=== PATIENT | female | born 1965 | race Caucasian/White ===

== ENCOUNTER 2016-10-12 05:28 | Emergency (ER) | payer BC ==
[2016-10-12] MEDS ORDERED: Bacitracin/Neomycin/Polymyxin B Oint 0.9 GM U/D Packet TOP ONE (06:12)
[2016-10-12 06:29] VITALS: BP 149/83
--- NOTE | 2016-10-12 06:31 | EDM.PDOC ---
ED HPI GENERAL MEDICAL PROBLEM - General Chief Complaint: Laceration Stated Complaint: R) palm laceration Time Seen by Provider: 10/12/16 05:35 Source of Information: Reports: Patient History Limitations: Reports: No Limitations - History of Present Illness INITIAL COMMENTS - FREE TEXT/NARRATIVE: Patient is a 50-year-old female who presents with a laceration of the right palmar area approximately 5 cm semicircular this time patient states that she was throwing away a glass cake fernandez that she saw cracked and when she put it in the garbage broke and she slid her hand. This happened around 5 AM prior to going to work Onset: Today Duration: Minutes: Location: Reports: Other (Right hand palmar aspect) Quality: Reports: Throbbing Severity: Moderate Improves with: Reports: None Worsens with: Reports: None Context: Reports: Trauma Associated Symptoms: Reports: No Other Symptoms - Related Data Allergies Allergy/AdvReac Type Severity Reaction Status Date / Time amoxicillin Allergy Hives Verified 10/12/16 05:32 Home Meds: Home Meds Aspirin 325 mg PO DAILY 12/05/15 [History] Cholecalciferol (Vitamin D3) [Vitamin D3] 2,000 unit PO BID 12/05/15 [History] Furosemide [Lasix] 20 mg PO BID 12/05/15 [History] Lisinopril 10 mg PO BID 12/05/15 [History] Multivitamin [Multi-Vitamin Daily] 1 tab PO DAILY 12/05/15 [History] Simvastatin 40 mg PO BEDTIME 12/05/15 [History] Ubidecarenone [Co Q-10] 100 mg PO BID 12/05/15 [History] amLODIPine [Norvasc] 5 mg PO DAILY 10/12/16 [History] cycloSPORINE [Cyclosporine] 100 mg PO BID 10/12/16 [History] Past Medical History Cardiovascular History: Reports: High Cholesterol, Hypertension Genitourinary History: Reports: Other (See Below) Other Genitourinary History: Kidney Disease, Nephrotic Syndrome [employer] History: Reports: Other (See Below) Other OB/BYN History: Nulligravida Endocrine/Metabolic History: Reports: Other (See Below) Other Endocrine/Metabolic History: Minimal Change Disease - Past Surgical History GI Surgical History: Reports: Cholecystectomy Social & Family History - Family History Cardiac: Reports: High Cholesterol Neurological: Reports: CVA Endocrine/Metabolic: Reports: Diabetes, type II Oncologic: Reports: Breast, Colon, Esophageal - Tobacco Use Smoking Status *Q: Never Smoker Second Hand Smoke Exposure: No - Caffeine Use Caffeine Use: Reports: Coffee - Alcohol Use Days Per Week of Alcohol Use: 2 - Recreational Drug Use Recreational Drug Use: No ED ROS GENERAL - Review of Systems Review Of Systems: See Below Constitutional: Reports: No Symptoms HEENT: Reports: No Symptoms Respiratory: Reports: No Symptoms Cardiovascular: Reports: No Symptoms Endocrine: Reports: No Symptoms GI/Abdominal: Reports: No Symptoms : Reports: No Symptoms Musculoskeletal: Reports: No Symptoms Skin: Reports: No Symptoms Neurological: Reports: No Symptoms Psychiatric: Reports: No Symptoms Hematologic/Lymphatic: Reports: No Symptoms Immunologic: Reports: No Symptoms ED EXAM, SKIN/RASH Exam: See Below Exam Limited By: No Limitations General Appearance: Alert, WD/WN, No Apparent Distress Ears: Normal External Exam, Normal Canal, Hearing Grossly Normal, Normal TMs Nose: Normal Inspection, Normal Mucosa, No Blood Throat/Mouth: Normal Inspection, Normal Lips, Normal Teeth, Normal Gums, Normal Oropharynx, Normal Voice, No Airway Compromise Head: Atraumatic, Normocephalic Neck: Normal Inspection, Supple, Non-Tender, Full Range of Motion Respiratory/Chest: No Respiratory Distress, Lungs Clear, Normal Breath Sounds, No Accessory Muscle Use, Chest Non-Tender Cardiovascular: Normal Peripheral Pulses, Regular Rate, Rhythm, No Edema, No Gallop, No JVD, No Murmur, No Rub GI/Abdominal: Normal Bowel Sounds, Soft, Non-Tender, No Organomegaly, No Distention, No Abnormal Bruit, No Mass (Female) Exam: Deferred Rectal (Female) Exam: Deferred Back Exam: Normal Inspection, Full Range of Motion, NT Extremities: Other (Laceration of right hand full-thickness through the fascia with exposed muscle) Neurological: Alert, Oriented, CN II-XII Intact, Normal Cognition, Normal Gait, Normal Reflexes, No Motor/Sensory Deficits Psychiatric: Normal Affect, Normal Mood Skin: Warm, Dry, Other (Laceration) Lymphatic: No Adenopathy ED SKIN PROCEDURES - Laceration/Wound Repair Right Proximal Hand Lac/Wound length In cm: 5 Appearance: Muscle, Clean Distal NVT: Neuro & Vascular Intact, Other (Fascia) Anesthetic Type: Local Local Anesthesia - Lidocaine (Xylocaine): 1% Plain Local Anesthetic Volume: 5cc Skin Prep: Providone-Iodine (Betadine) Exploration/Debridement/Repair: Wound Explored, No Foreign Material Found Closed with: Sutures Suture Size: 4-0 # of Sutures: 12 Suture Type: Nylon Suture Size: 4-0 Repaired with: Vicryl Course - Vital Signs Last Recorded V/S: Last Vital Signs Temp 98.2 F 10/12/16 05:38 Pulse 81 10/12/16 05:38 Resp 19 10/12/16 05:38 BP 154/92 H 10/12/16 05:38 Pulse Ox 97 10/12/16 05:38 - Orders/Labs/Meds Meds: Medications Discontinued Medications Generic Name Dose Route Start Last Admin Trade Name Gosia PRN Reason Stop Dose Admin Lidocaine HCl Confirm 10/12/16 05:41 10/12/16 06:15 Xylocaine-Mpf 1% Administered 10/12/16 05:42 Not Given Dose 10 ml .ROUTE .STK-MED ONE Lidocaine HCl 10 ml 10/12/16 06:13 10/12/16 06:16 Xylocaine-Mpf 1% INJECT 10/12/16 06:14 10 ml ONETIME ONE Administration Neomycin/Polymyxin/Bacitracin 1 each 10/12/16 06:12 10/12/16 06:15 Triple Antibiotic Oint TOP 10/12/16 06:13 1 each ONETIME ONE Administration Departure - Departure Time of Disposition: 06:41 Disposition: Home, Self-Care 01 Clinical Impression: Broken skin - Discharge Information Forms: ED Department Discharge - Problem List & Annotations (1) Laceration of right hand without complication, including fingers SNOMED Code(s): 219987755 Code(s): S61.411A - LACERATION WITHOUT FOREIGN BODY OF RIGHT HAND, INIT ENCNTR Status: Acute Priority: Medium Onset Date: 10/12/16 Annotation/ Comment:: Patient presented with laceration of right hand patient is right-hand dominant including fascia the fascia was repaired with 4-0 Vicryl and the skin closed with 4-0 Ethilon interrupted - Assessment/Plan Plan: Patient will be discharged home she is to take Motrin for pain 400 mg every 6 hours as needed she is to keep the wound clean in 3 days she should take the dressing off
== END 2016-10-12 07:00 | disposition home or self-care (01) ==
LOC: LL.ED 05:28
DX: S61.411A Laceration without foreign body of right hand, initial encounter (principal); E78.00 Pure hypercholesterolemia, unspecified; I10 Essential (primary) hypertension; Z88.1 Allergy status to other antibiotic agents; Z79.82 Long term (current) use of aspirin; Z79.899 Other long term (current) drug therapy; Z90.49 Acquired absence of other specified parts of digestive tract; W25.XXXA Contact with sharp glass, initial encounter
CPT/HCPCS: 12042; 99282

== ENCOUNTER 2018-12-15 09:20 | Day surgery (SDC) | payer BC ==
[~2018-12-15 09:20] MED LIST: Propofol 200 MG/20 ML SDV ONE
[2018-12-15] MEDS ORDERED: Lactated Ringers 1,000 ML IV SCH (09:30)
[2018-12-15] MEDS ORDERED: Sodium Chloride 0.9% 10 ML Syringe FLUSH PRN (09:30)
[2018-12-15] MEDS ORDERED: Midazolam 1 MG/ML 2 ML SDV ONE ×2 (10:14→10:21)
[2018-12-15] MEDS ORDERED: Propofol 200 MG/20 ML SDV ONE (10:21)
--- NOTE | 2018-12-15 10:21 | PCM.PN ---
- General Info Date of Service: 12/15/18 - Review of Systems Systems Review Comment:: 53-year-old female with history of colon polyps here for surveillance colonoscopy. She is medically stable to proceed today. Her recent history and physical is reviewed and no significant changes are noted. I have discussed the proposed colonoscopy with the patient. She agrees to proceed accepting risks. - Patient Data Vitals - Most Recent: Last Vital Signs Temp 98.9 F 12/15/18 09:46 Pulse 66 12/15/18 09:46 Resp 18 12/15/18 09:46 BP 124/79 12/15/18 09:46 Pulse Ox 100 12/15/18 09:46 Weight - Most Recent: 73.482 kg Med Orders - Current: Current Medications Lactated Ringer's (Ringers, Lactated) 1,000 mls @ 125 mls/hr IV ASDIRECTED JANE Last Admin: 12/15/18 10:07 Dose: 125 mls/hr Sodium Chloride (Saline Flush) 10 ml FLUSH ASDIRECTED PRN PRN Reason: Keep Vein Open Discontinued Medications Midazolam HCl (Versed 1 Mg/Ml) Confirm Administered Dose 2 mg .ROUTE .STK-MED ONE Stop: 12/15/18 10:15 Propofol (Diprivan 20 Ml) Confirm Administered Dose 200 mg .ROUTE .STK-MED ONE Stop: 12/15/18 08:43 - Problem List Review Problem List Initiated/Reviewed/Updated: Yes - My Orders Last 24 Hours: My Active Orders 12/15/18 09:30 Patient Status [ADT] Routine Peripheral IV Care [RC] . DIRECTED Verify Patient Consent Obtain [RC] ASDIRECTED Lactated Ringers [Ringers, Lactated] 1,000 ml IV ASDIRECTED Sodium Chloride 0.9% [Saline Flush] 10 ml FLUSH ASDIRECTED PRN Peripheral IV Insertion Adult [OM.PC] Routine - Assessment Assessment:: history of colon polyps - Plan Plan:: colonoscopy
--- NOTE | 2018-12-15 10:58 | PCM.OPNOTE ---
- General Post-Op/Procedure Note Date of Surgery/Procedure: 12/15/18 Operative Procedure(s): Colonoscopy with Polypectomy Findings: Small cecal polyp Pre Op Diagnosis: History of Colon Polyps Post-Op Diagnosis: Colon Polyp Anesthesia Technique: MAC Primary Surgeon: Jon Jasso Pathology: Cecal Polyp EBL in mLs: 0 Complications: None Condition: Good
[2018-12-15 11:48] VITALS: BP 130/79; PULSE 52
--- NOTE | 2018-12-16 08:36 | OR ---
Date of Procedure: 12/15/2018 PREOPERATIVE DIAGNOSIS: History of colon polyps. POSTOPERATIVE DIAGNOSIS: Cecal polyp. OPERATION PERFORMED: Colonoscopy with polypectomy. INDICATIONS FOR SURGERY: This 53-year-old female comes today for surveillance colonoscopy. She has a known history of colon polyps. FINDINGS: In the cecum, the patient has a sessile 5 mm polyp. The remainder of the colon appears normal. DESCRIPTION OF PROCEDURE: The patient was taken to the operating room. She was given intravenous sedation, and with her in the left lateral decubitus position, digital rectal exam was performed showing no rectal masses. The Olympus colonoscope was inserted into the rectum. Retroflexed examination of the rectal canal was performed. The scope was then carefully advanced under direct visualization through the entire length of the colon until the cecum was reached. Cecal acquisition was confirmed by noting the normal internal cecal anatomy including the appendiceal orifice and ileocecal valve. The scope light was also noted to transilluminate the abdominal wall in the right lower quadrant. While examining the cecum, the above-described polyp was identified, and this was removed with a cautery snare and retrieved into a polyp trap. After examining the cecum, the scope was slowly withdrawn sequentially re- examining the colonic segments until the entire colon and rectum had been fully examined. The scope was removed. The patient was taken from the operating room in satisfactory condition. ESTIMATED BLOOD LOSS: 0. COMPLICATIONS: None. PROGNOSIS: Good. BECKIE Jasso MD /[id number] CC: Lis Gonzalez PA-C
== END 2018-12-15 11:34 | disposition home or self-care (01) ==
LOC: LL.SDS 09:20
PROVIDERS: ATTEND Surgery
DX: Z12.11 Encounter for screening for malignant neoplasm of colon (principal); D12.0 Benign neoplasm of cecum; I10 Essential (primary) hypertension; M19.90 Unspecified osteoarthritis, unspecified site; Z88.0 Allergy status to penicillin; Z86.010 Personal history of colon polyps; Z80.0 Family history of malignant neoplasm of digestive organs; Z79.899 Other long term (current) drug therapy
CPT/HCPCS: J2250; J2704; J7120

== ENCOUNTER → 2019-02-24 | Outpatient (CLI) | payer BC ==
[2019-02-24 17:23] LABS: CHLORIDE,CL 109 mmol/L (98-107); SODIUM,NA 141 mmol/L (136-145)
== END ==
LOC: LL.LAB 16:50
PROVIDERS: ATTEND Physician Assistant
DX: D64.9 Anemia, unspecified (principal)
CPT/HCPCS: 36415; 80048; 85018

== ENCOUNTER 2021-12-07 09:33 | Emergency (ER) | payer BC ==
[2021-12-07 10:19] LABS: ANION GAP 11.1 meq/L (7-15); CHLORIDE,CL 103 mmol/L (98-107); ESTIMATED GFR 104 mL/min (>=60); SODIUM,NA 140 mmol/L (136-145)
[2021-12-07 10:29] VITALS: BP 147/84; PULSE 72
[2021-12-07] MEDS: Ketorolac 30 MG/ML SDV IM ONE (10:58)
== END 2021-12-07 11:15 | disposition home or self-care (01) ==
LOC: LL.ED 09:33 → SUPCPDRO 09:33 → LL.ED 11:15
DX: M54.50 Low back pain, unspecified (principal); E78.00 Pure hypercholesterolemia, unspecified; I10 Essential (primary) hypertension; M19.90 Unspecified osteoarthritis, unspecified site; Z88.0 Allergy status to penicillin; Z79.82 Long term (current) use of aspirin; Z79.899 Other long term (current) drug therapy
CPT/HCPCS: 36415; 80053; 81003; 85025; 96372; 99284; J1885

== ENCOUNTER 2023-03-04 10:05 | Day surgery (SDC) | payer BC ==
[~2023-03-04 10:05] MED LIST changes: +Midazolam 1 MG/ML 2 ML SDV ONE
[2023-03-04] MEDS ORDERED: Sodium Chloride 0.9% 10 ML Syringe FLUSH PRN (10:15)
[2023-03-04] MEDS ORDERED: Lactated Ringers 1,000 ML IV SCH (10:15)
[2023-03-04 12:29] VITALS: PULSE 65
[2023-03-04 12:30] VITALS: BP 98/58
== END 2023-03-04 12:35 | disposition home or self-care (01) ==
LOC: LL.SDS 10:05
PROVIDERS: ATTEND Surgery
DX: D12.6 Benign neoplasm of colon, unspecified (principal); F41.9 Anxiety disorder, unspecified; I12.9 Hypertensive chronic kidney disease with stage 1 through stage 4 chronic kidney disease, or unspecified chronic kidney disease; N18.2 Chronic kidney disease, stage 2 (mild); E78.5 Hyperlipidemia, unspecified; Z80.0 Family history of malignant neoplasm of digestive organs; Z86.010 Personal history of colon polyps; Z98.890 Other specified postprocedural states; Z79.899 Other long term (current) drug therapy; Z79.82 Long term (current) use of aspirin; Z88.1 Allergy status to other antibiotic agents
CPT/HCPCS: 00812; J2250; J2704; J7120